=== PATIENT | male | born 1995 | race Caucasian/White ===

== ENCOUNTER 2017-11-22 13:40 | Emergency (ER) | payer BC ==
[2017-11-22 13:56] VITALS: BP 129/68
--- NOTE | 2017-11-22 14:01 | ER Document Report ---
HPI - HPI Pain Level: 0 Vertical Provider Document - INFECTION CONTROL TRAVEL OUTSIDE OF THE [place] IN LAST 30 DAYS: No Course - Vital Signs Vital signs: Temp Pulse Resp BP Pulse Ox 97.6 F 71 16 129/68 H 99 11/22/17 13:54 11/22/17 13:54 11/22/17 13:54 11/22/17 13:54 11/22/17 13:54
[2017-11-22] MEDS ORDERED: DIPH/PERTUSS(ACELL)/TETANUS VAC/PF 0.5 ML SYR (>=10YO) IM ONE (14:36)
--- NOTE | 2017-11-22 14:36 | ER Document Report ---
HPI - HPI Patient complains to provider of: cut hand Onset: - sunday Pain Level: 0 Context: 22 yo sent from work today due to abrasions dorsal right hand from cutting it on broken glass when hit a picture.. No sensation of glass in the cuts, only had one that is still bleeding. becuase it breaks open when using his hand. Tetanus is current. Associated Symptoms: None Exacerbated by: Movement Relieved by: Denies - ROS ROS below otherwise negative: Yes Systems Reviewed and Negative: Yes All other systems reviewed and negative - CONSTITUTIONAL Constitutional: DENIES: Fever, Chills - EENT EENT: DENIES: Sore Throat, Ear Pain, Eye problems - NEURO Neurology: DENIES: Headache, Weakness, Vision blurred, Dizzinesss / Vertigo - CARDIOVASCULAR Cardiovascular: DENIES: Chest pain - RESPIRATORY Respiratory: DENIES: Trouble Breathing, Coughing - GASTROINTESTINAL Gastrointestinal: DENIES: Abdominal Pain, Black / Bloody Stools - URINARY Urinary: DENIES: Dysuria, Urgency, Frequency - REPRODUCTIVE Reproductive: DENIES: : - MUSCULOSKELETAL Musculoskeletal: REPORTS: Extremity pain - R hand Past Medical History - General Information source: Patient - Social History Smoking Status: Current Every Day Smoker Chew tobacco use (# tins/day): No Frequency of alcohol use: Occasional Drug Abuse: Marijuana Lives with: Spouse/Significant other Family History: Reviewed & Not Pertinent Patient has suicidal ideation: No Patient has homicidal ideation: No - Medical History Medical History: Negative Renal/ Medical History: Denies: Hx Peritoneal Dialysis Surgical Hx: Negative Vertical Provider Document - CONSTITUTIONAL Agree With Documented VS: Yes Exam Limitations: No Limitations General Appearance: No Apparent Distress - INFECTION CONTROL TRAVEL OUTSIDE OF THE [place] IN LAST 30 DAYS: No - MUSCULOSKELETAL/EXTREMETIES Musculoskeletal/Extremeties: BOBBY YEE - NEURO Level of Consciousness: Alert Motor/Sensory: No Motor Deficit, No Sensory Deficit - DERM Integumentary: Laceration - abrasions that are not infected dorsal right hand over the MCP joints, at the 2nd MCP deeper soft tissue cut, cleased, steri strips applied for extra strength while healing Course - Vital Signs Vital signs: Temp Pulse Resp BP Pulse Ox 97.6 F 71 16 129/68 H 99 11/22/17 13:54 11/22/17 13:54 11/22/17 13:54 11/22/17 13:54 11/22/17 13:54 Discharge - Discharge Clinical Impression: right hand abrasions Condition: Good Disposition: HOME, SELF-CARE Instructions: Abrasions ([facility]), Tetanus Immunization Given ([facility]) Additional Instructions: Keep the wounds clean and dry Use gloves at work Return to the emergency room for any signs of infection Forms: Return to Work
== END 2017-11-22 15:15 | disposition home or self-care (01) ==
LOC: ER 13:40 → EDBD 13:40 → ER 15:15
DX: S60.511A Abrasion of right hand, initial encounter (principal); W25.XXXA Contact with sharp glass, initial encounter; F17.200 Nicotine dependence, unspecified, uncomplicated; Z23 Encounter for immunization
CPT/HCPCS: 90471; 90715; 99283